=== PATIENT | female | born 1990 | race Asian ===

== ENCOUNTER 2022-03-24 17:53 | Emergency (ER) | payer OTHER ==
[~2022-03-24 17:53] MED LIST: PRENATAL FORMU1 EACH PO
[2022-03-24 20:00] LABS: BASOPHIL 0.3 % (0-2); BILIRUBIN NEGATIVE (NEGATIVE); BLOOD 1+ Ery/uL (NEGATIVE); CLARITY CLEAR (CLEAR); COLOR YELLOW (YELLOW); GLUCOSE (U) NORMAL (NORMAL); HCT 39.8 % (37.0-47.0); HGB 13.1 g/dl (12.5-16.0); LEUKOCYTES NEGATIVE Leu/uL (NEGATIVE); LYMPHOCYTE 32.1 % (15-48); MCH 28.6 pg (25.0-31.0); MCHC 32.9 g/dL (32.0-36.0); MCV 86.9 fL (78.0-100.0); MONOCYTE 8.5 % (0-12); MPV 11.7 fL (6.0-9.5); NEUTROPHIL 57.8 % (41-80); NITRITE NEGATIVE (NEGATIVE); NRBC 0; PLT 308 K/uL (150-400); PROTEIN NEGATIVE (NEGATIVE); RBC 4.58 M/uL (4.20-5.40); RDW 12.4 % (11.5-14.0); UROBILINOGEN 0.2 mg/dL (0.2-1.0); WBC 8.6 K/uL (4.0-10.5)
[2022-03-24 20:10] LABS: URINARY RBC RARE; URINARY WBC RARE
[2022-03-24 20:20] LABS: ALBUMIN 4.4 g/dL (3.4-5.0); BILIRUBIN - TOTAL 0.4 mg/dL (0.2-1.0); BUN/CREAT RATIO (CALC) 15.7 RATIO; CREATININE 0.7 mg/dL (0.51-0.95); GLOBULIN (CALCULATION) 4.6 g/dL; POTASSIUM 3.8 mmol/L (3.5-5.1)
== END 2022-03-24 23:16 | disposition home or self-care (01) ==
LOC: FER 17:53
PROVIDERS: Emergency Medicine
DX: Q63.2 Ectopic kidney (principal)
CPT/HCPCS: 36415; 80053; 81001; 82150; 83690; 85025; Q9967